=== PATIENT | female | born 1985 | race Caucasian/White ===

== ENCOUNTER 2018-03-13 05:46 | Day surgery (SDC) | payer OTHER ==
[2018-03-13] MEDS ORDERED: LIDOCAINE 1% 2 ML INJ ID PRN (06:07)
[2018-03-13] MEDS ORDERED: LR 1,000 ML IV ONE (06:07)
[2018-03-13] MEDS ORDERED: MIDAZOLAM 2 MG/2 ML VIAL IVP ONE (06:51)
--- NOTE | 2018-03-13 06:51 | PDANEPAE ---
ANE History of Present Illness here for endometriosis excision ANE Past Medical History - Cardiovascular History Hx Hypertension: No Hx Arrhythmias: No Hx Chest Pain: No Hx Coronary Artery / Peripheral Vascular Disease: No Hx CHF / Valvular Disease: No Hx Palpitations: No - Pulmonary History Hx COPD: No Hx Asthma/Reactive Airway Disease: No Hx Recent Upper Respiratory Infection: No Hx Oxygen in Use at Home: No Hx Sleep Apnea: No Sleep Apnea Screening Result - Last Documented: Negative - Neurologic History Hx Cerebrovascular Accident: No Hx Seizures: No Hx Dementia: No - Endocrine History Hx Diabetes: No - Renal History Hx Renal Disorders: No - Liver History Hx Hepatic Disorders: No - Neurological & Psychiatric Hx Hx Neurological and Psychiatric Disorders: Yes Neurological / Psychiatric History Comment: raynards - Cancer History Hx Cancer: No - Congenital Disorder History Hx Congenital Disorders: No - GI History Hx Gastrointestinal Disorders: Yes Gastrointestinal History Comment: reflux, IBS - Other Health History Other Health History: endometriosis - Chronic Pain History Chronic Pain: No - Surgical History Prior Surgeries: none ANE Review of Systems Review of systems is: negative Review of Systems: - Exercise capacity Exercise capacity: >=4 METS METS (RN): 6 METS ANE Patient History - Allergies Allergies/Adverse Reactions: gluten Allergy (Verified 03/13/18 06:34) Abdominal Cramping ketorolac [From Toradol] Allergy (Verified 03/13/18 06:34) Other-Enter Comments Milk Containing Products [dairy] Allergy (Verified 03/13/18 06:34) Abdominal Cramping - Home Medications Home medications: home medication list seen and reviewed Home Medications: Adderall 10 MG (*) 02/27/18 [Last Taken 03/11/18] Kourtney Allergy 02/27/18 [Last Taken 03/12/18] Citrucel 02/27/18 [Last Taken 03/12/18] Magnesiun Citrate 02/27/18 [Last Taken 03/12/18] Ortho Tri-Cyclen Lo Tablet 02/27/18 [Last Taken 03/06/18] Valtrex 02/27/18 [Last Taken 02/20/18] - NPO status NPO Status: no food or drink >8 hours NPO Since - Liquids (Date): 03/13/18 NPO Since - Liquids (Time): 05:00 NPO Since - Solids (Date): 03/12/18 NPO Since - Solids (Time): 19:00 - Smoking Hx Smoking Status: Never smoked - Family Anes Hx Family Hx Anesthesia Complications: none ANE Labs/Vital Signs - Vital Signs Vital Signs: reviewed preoperatively; see RN documention for details Blood Pressure: 102/67 Heart Rate: 79 Respiratory Rate: 16 O2 Sat (%): 98 Height: 160.02 cm Weight: 50.802 kg ANE Physical Exam - Airway Neck exam: FROM Mallampati Score: Class 1 - Pulmonary Pulmonary: no respiratory distress - Cardiovascular Cardiovascular: regular rate and rhythym - ASA Status ASA Status: I ANE Anesthesia Plan Anesthesia Plan: general endotracheal anesthesia
[2018-03-13] MEDS ORDERED: NALOXONE HCL 0.4 MG/ML INJ IVP PRN (06:57)
[2018-03-13] MEDS ORDERED: ONDANSETRON 4 MG/2 ML VIAL IVP PRN ×2 (06:57→15:56)
[2018-03-13] MEDS ORDERED: ALBUTEROL 3 ML DEYVIAL IH PRN (06:57)
[2018-03-13] MEDS ORDERED: PROMETHAZINE HCL 25 MG/ML INJ IVP PRN (06:57)
[2018-03-13] MEDS ORDERED: NS 500 ML IV PRN (06:57)
[2018-03-13] MEDS ORDERED: oxyCODONE IR 5 MG TAB PO PRN (06:57)
[2018-03-13] MEDS ORDERED: DEXAMETHASONE 4 MG/ML VIAL IVP PRN (06:57)
[2018-03-13] MEDS ORDERED: ACETAMINOPHEN 500 MG TAB PO PRN (06:57)
[2018-03-13] MEDS ORDERED: LR 500 ML IV PRN (06:57)
[2018-03-13] MEDS ORDERED: PROPOFOL/EMULSION 500 MG/50 ML BOTTLE IV ONE (07:03)
[2018-03-13] MEDS ORDERED: BUPIVACAINE/EPI 0.5% 30 ML SDV ONE (07:04)
[2018-03-13] MEDS ORDERED: ROCURONIUM 50 MG/5 ML VIAL ONE ×2 (07:04)
[2018-03-13] MEDS ORDERED: ONDANSETRON 4 MG/2 ML VIAL ONE ×2 (07:06→12:50)
[2018-03-13] MEDS ORDERED: DEXAMETHASONE 4 MG/ML VIAL ONE (07:06)
--- NOTE | 2018-03-13 07:06 | PDHPUP ---
History & Physical Update H&P update statement: This history and physical update is based on an assessment of the patient which was completed after admission or registration (within 24 hours), but prior to the surgery/procedure. H&P update: H&P reviewed & patient examined, no change in patient's condition since H&P completed
--- NOTE | 2018-03-13 07:06 | PDGENHP ---
History and Physical History and Physical: Assessment and Plan: 1. Dysmenorrhea Suzy's symptoms and exam findings are highly suggestive of pelvic endometriosis especially along the uterosacral ligaments and underneath the cervix. So far she has failed medical management. We reviewed all conservative and surgical options. At the end of our discussion she wishes to proceed with robotic excision of endometriosis tomorrow. The risks benefits and alternatives were presented and informed consent was obtained. 2. Dyspareunia, female 3. Dyschezia Subjective: Patient ID: Suzy Carpenter is a 33 y.o. female who presents to [facility] for endometriosis. HPI Suzy is a 32-year-old nulliparous woman who moved to [place]. A long history of pelvic pain. For years she was thought to have irritable bowel syndrome. She was seen many gastroenterologists and had has had a colonoscopy which was normal. More recently she has seen a functional health practitioner and worked on her food allergies. When she was younger she missed school on a monthly basis. She then took control pills which helped but still had some gastrointestinal issues. Over the last few years her pelvic pain is worsened. She saw pelvic physical therapist which provided minimal benefit. She has deep dyspareunia. She saw a specialist in [place] while she was living in [place] who performed a transvaginal ultrasound. No abnormalities are seen. However she had a horrible pain in the adnexa during the examination. Her pain occurs on a daily basis. She describes it as a burning and throbbing pain. She is not sure if it is worse with her menses. She often is bloated by the early afternoon. She has some slight back discomfort. The practitioner Kam wanted her to start Lupron before laparoscopy. Additionally she has deep dyschezia. She has a long history of looser stools but has had more constipation since last June. She takes magnesium every night. She also has had some urinary tract infection symptoms since June. PastMedicalHistory Past Medical History: Diagnosis Date Allergy to pollen Gastrointestinal disorder IBS Neurologic disorder Varicella PastSurgicalHistory Past Surgical History: Procedure Laterality Date COLONOSCOPY UPPER GASTROINTESTINAL ENDOSCOPY CURRENT MEDICATIONS: Current Outpatient Prescriptions Medication Sig dextroamphetamine-amphetamine (ADDERALL) 10 mg tablet Take 10 mg by mouth daily. fexofenadine-pseudoephedrine (MP-D 24) 180-240 mg per 24 hr tablet daily. Magnesium Citrate Powd Take 600 mg by mouth daily. methylcellulose (CITRUCEL) tablet Take 1,000 mg by mouth daily. norgestimate-eth estradiol (ORTHO TRI-CYCLEN LO, 28,) 0.18/0.215/0.25 mg-25 mcg per tablet daily. valACYclovir (VALTREX) 1 g tablet 1 tablet as needed. No current facility-administered medications for this visit. ALLERGIES: Ketorolac; Lactase; and Wheat I have reviewed, verified and agree with the past medical, surgical, , family, social and ROS history as documented by the RN today. Objective: Vital Signs: There were no vitals taken for this visit. Physical Exam Gen: This is an alert, well developed woman in no distress. Neuro: She moves all extremities. Psych: She is appropriate, oriented, with normal affect. Neck: No thyroid enlargement, adenopathy, or tenderness. Lungs: Clear to ascultation, no wheezes or rales. Heart: Regular rate and rhythm without obvious murmurs. Abdomen: Soft, non-tender, without guarding, rebound, or masses. Extremities: No edema or cyanosis. Pelvic: Normal external genitalia. Non-gaping introitus, vagina without discharge, adequately estrogenized, no significant prolapse. Cervix without lesions or discharge. Uterus normal size, retroverted, with reduced mobility. She is tender surrounding the cervix especially posteriorly. She has thickening where both uterosacral ligaments join the cervix.. Adnexa non-tender without enlargement. DATA: I have reviewed the pertinent medical records. TIME/COMMUNICATION: I personally spent a total of 60 minutes. Of that 45 minutes was counseling/ coordination of patient's care. See my note above for details. Bahman Alexander MD Board Certified Female Pelvic Medicine and Reconstructive Surgery Director of Minimally Invasive Gynecologic Surgery, [facility] Surgeon in Minimally Invasive Gynecologic Surgery [facility] Surgeon in Robotic Surgery
[2018-03-13] MEDS ORDERED: ceFAZolin 2 GM/DEXTROSE 100 ML IV ONE (07:09)
[2018-03-13] MEDS ORDERED: PHENAZOPYRIDINE HCL 200 MG TAB PO ONE (07:09)
[2018-03-13] MEDS ORDERED: fentaNYL 100 MCG/2 ML INJ ONE ×3 (07:18→08:54)
[2018-03-13] MEDS ORDERED: PROPOFOL 200 MG/20 ML VIAL ONE (07:32)
[2018-03-13] MEDS ORDERED: PHENYLEPHRINE HCL 100 MCG/ML SYR ONE (07:42)
[2018-03-13] MEDS ORDERED: GLYCOPYRROLATE 0.2 MG/1 ML VIAL ONE ×2 (08:26)
[2018-03-13] MEDS ORDERED: NEOSTIGMINE METHYLSULFATE 5 MG/5 ML SYR ONE (08:27)
[2018-03-13] MEDS ORDERED: HYDROmorphONE/DILAUDID 1 MG/ML INJ ONE (08:54)
[2018-03-13] MEDS: fentaNYL 100 MCG/2 ML INJ IVP PRN ×2 (08:56→09:02)
[2018-03-13] MEDS: HYDROmorphONE/DILAUDID 1 MG/ML INJ IVP PRN ×2 (08:59→09:07)
--- NOTE | 2018-03-13 08:59 | GOP ---
[f rep st] OPERATIVE REPORT DATE OF OPERATION: 03/13/2018 SURGEON: Bahman Alexander MD CONTAINER FILLER: SONALI Shah. ANESTHESIA: General. PREOPERATIVE DIAGNOSIS: 1. Dysmenorrhea. 2. Endometriosis. 3. Cyclic pelvic pain. POSTOPERATIVE DIAGNOSIS: 1. Dysmenorrhea. 2. Endometriosis. 3. Cyclic pelvic pain. PROCEDURE PERFORMED: 1. Robotic excision of endometriosis in posterior cul-de-sac bilateral ovarian fossa. 2. Bilateral ureterolysis. 3. Bilateral ovariopexy. FINDINGS: SPECIMENS: Pelvic peritoneum with endometriosis. ESTIMATED BLOOD LOSS: Scant. DESCRIPTION OF PROCEDURE: The patient was taken to the operating room where she was identified. Gen eral anesthesia was administered and found to be adequate. She was placed in the lithotomy position and prepared and draped in normal sterile fashion. A Pearl catheter was placed in her bladder. A Hu lka tenaculum was placed in the uterus for manipulation. A 1 cm infraumbilical incision was made with a scalpel. The Veress needle with the CO2 gas flowing w as advanced into the peritoneal cavity. The abdomen was then insufflated with carbon dioxide gas. T he 12 mm trocar followed by the laparoscope were then inserted. The upper abdomen was unremarkable. There was no evidence of endometriosis on the liver, diaphragm, gallbladder, stomach or upper abdomi nal bowel. Two lateral ports were placed in the right and 1 on the left under direct visualization. She was then placed in Trendelenburg position and the da Nidia robot docked on the left side. The i nstruments were then brought into the abdominal cavity under direct visualization. She was found to have several vesicular type lesions of endometriosis in the posterior cul-de-sac between both uterosa cral ligaments near the cervix as well as both ovarian fossae overlying both ureters. There were 3 l esions on the left ovary which were fulgurated. Given cyclic pelvic pain a bilateral ovariopexy was performed by attaching each ovary to the ipsilateral round ligaments near the internal inguinal ring with 3-0 Vicryl Rapide suture. A bilateral ureterolysis was required to remove the endometriosis ove rlying both ureters. The peritoneum at the pelvic brims were incised. The ureters were gently disse cted free and lateralized off the overlying peritoneum and endometriosis from the pelvic brim all the way down to the uterine arteries. Once this was accomplished, the entire ovarian fossa peritoneum w as completely excised. The posterior cul-de-sac peritoneum was excised from the distal rectum to the cervix and laterally to the uterosacral ligaments. The pelvis was then irrigated with sterile salin e, and hemostasis was present. The robot was then undocked. The fascia was closed with 0 Vicryl, th e skin with 4-0 Monocryl and surgical adhesive. Anesthesia was reversed and the patient taken to PAC U awake, in stable condition. COMPLICATIONS: None. DISPOSITION: Patient stable to PACU. /[id number]/MODL
[2018-03-13] MEDS ORDERED: IBUPROFEN 800 MG TAB PO ONE (09:15)
--- NOTE | 2018-03-13 09:23 | POSTANESTH ---
Post Anesthetic Evaluation Cardiovascular Status: Normal, Stable Respiratory Status: Normal, Stable Level of Consciousness/Mental Status: Can Participate in Eval Pain Control: Adequate, Prn Tx Ordered Nausea/Vomiting Control: Adequate, Prn Tx Ordered Complications Possibly Related to Anesthesia: None Noted
[2018-03-13] MEDS ORDERED: HYDROCODONE/APAP 5/325 TAB ONE ×2 (10:18→12:03)
[2018-03-13] MEDS: HYDROCODONE/APAP 5/325 TAB PO PRN ×2 (10:20→12:04)
[2018-03-13] MEDS ORDERED: HYDROCODONE/APAP 5/325 TAB PO PRN (15:55)
[2018-03-13 17:59] VITALS: BP 125/76
== END 2018-03-13 18:21 | disposition home or self-care (01) ==
LOC: FSGY 05:46
PROVIDERS: ATTEND Obstetrics & Gynecology
PROC: 0US28ZZ Reposition Bilateral Ovaries, Via Natural or Artificial Opening Endoscopic (ICD-10-PCS; principal; 2018-03-13 07:15)
PROC: 0UB24ZZ Excision of Bilateral Ovaries, Percutaneous Endoscopic Approach (ICD-10-PCS; principal; 2018-03-13 07:15)
PROC: 8E0Y4CZ Robotic Assisted Procedure of Lower Extremity, Percutaneous Endoscopic Approach (ICD-10-PCS; principal; 2018-03-13 07:15)
PROC: 0UBF8ZX Excision of Cul-de-sac, Via Natural or Artificial Opening Endoscopic, Diagnostic (ICD-10-PCS; principal; 2018-03-13 07:15)
DX: N80.3 Endometriosis of pelvic peritoneum (principal); N80.1 Endometriosis of ovary; N94.6 Dysmenorrhea, unspecified; K58.9 Irritable bowel syndrome, unspecified
CPT/HCPCS: J0690; J1100; J1170; J2250; J2370; J2405; J2704; J2710; J3010